=== PATIENT | female | born 1990 | race African-American/Black ===

== ENCOUNTER 2018-08-01 18:17 | Emergency (ER) | payer OTHER, SELFPAY ==
[2018-08-01 20:01] LABS: Bilirubin Negative (Negative); Blood, Urine Negative (Negative); Clarity CLOUDY (Clear); Glucose, Urine (Dipstick) Negative (Negative); Leukocyte Large (Negative); Nitrite Negative (Negative); Protein, Urine (Dipstick) 30 mg/dL (Neg-Trace); Specific Gravity, Urine 1.016 (1.002-1.036); Urobilinogen 0.2 mg/dL (0.2-1.0); pH, Urine 5.5 (5.0-9.0)
[2018-08-01 20:03] LABS: Bacteria/HPF 1+ HPF (None Seen); Pathc Cast-AUWi Flag 2.18 (0-2.49); Squamous Epithelial 0-3 HPF (0-3)
[2018-08-01 20:06] LABS: Hyaline Casts/LPF 0-3 HYALINE CAST LPF (0-3 Hyaline); RBC/HPF None Seen HPF (0-3)
== END 2018-08-01 20:38 | disposition home or self-care (01) ==
LOC: ERS 18:17
DX: O23.43 Unspecified infection of urinary tract in pregnancy, third trimester (principal); O99.89 Other specified diseases and conditions complicating pregnancy, childbirth and the puerperium; R19.7 Diarrhea, unspecified; Z3A.29 29 weeks gestation of pregnancy
CPT/HCPCS: 81003; 81015; 87086; 99284

== ENCOUNTER 2018-08-26 11:07 | Day surgery (SDC) | payer OTHER ==
--- NOTE | 2018-08-26 13:41 | PDOC.LDHP ---
Labor and Delivery H&P Chief complaint: other (spotting) HPI: 28 y/o at 32w5d, patient of Dr. Romero, presents with blood tinged discharge while at [facility] earlier that has since resolved. Denies heavy VB, ctx, LOF, or decreased FM. ROS neg for HEENT, CV, pulm, GI, , neuro, psych, skin, musculoskeletal, or constitutional symptoms other than mentioned above. OB History Details: 2 prior term SVDs Current complications: none Past Medical History: None Current medications: pre- vitamins Previous surgical history: cholecystectomy Allergies/Adverse Reactions: Allergies Allergy/AdvReac Type Severity Reaction Status Date / Time No Known Allergies Allergy Verified 08/26/18 11:46 Social history: none - Physical Exam Vital signs reviewed and normal: yes General: NAD, resting Lungs: nonlabored breathing Abdomen: gravid Extremeties: no edema FHT: category 1 (125, mod variability, + accels, no decels) [place] contractions every: none - Assessment 28 y/o at 32w5d with spotting that has resolved. status reassuring with reactive NST. - Plan -: D/c home with precautions. Advised to keep all appointments.
== END 2018-08-26 13:47 | disposition home or self-care (01) ==
LOC: L&D/OP 11:07
PROVIDERS: ATTEND Obstetrics & Gynecology
DX: O26.853 Spotting complicating pregnancy, third trimester (principal); Z3A.32 32 weeks gestation of pregnancy
CPT/HCPCS: 59025; 99281

== ENCOUNTER 2018-10-10 10:40 | Inpatient (IN) | payer OTHER ==
[2018-10-11] MEDS ORDERED: Bupivacaine PF 0.5% 30 ML VIAL ONE (02:00)
[2018-10-11] MEDS ORDERED: Butorphanol Tartrate 1 MG/ML VIAL SLOW IVP PRN (06:23)
[2018-10-11] MEDS ORDERED: Ondansetron PF 4 MG/2 ML Vial IVP PRN ×3 (06:23→16:30)
[2018-10-11] MEDS ORDERED: Promethazine HCl 25 MG/ML VIAL IM PRN ×3 (06:23→16:12)
[2018-10-11 06:24] VITALS: BMI 45.9
[2018-10-11] MEDS ORDERED: Methylergonovine 0.2 MG/ML VIAL IM PRN (06:30)
[2018-10-11] MEDS ORDERED: Misoprostol 200 MCG TAB RC PRN (06:30)
[2018-10-11] MEDS ORDERED: Ibuprofen 800 MG TAB PO PRN (06:30)
[2018-10-11] MEDS ORDERED: NS w/ Oxytocin 10 units 500 ML IV SCH ×2 (06:30)
[2018-10-11] MEDS: Lactated Ringer's 1,000 ML IV SCH ×2 (07:20→12:42)
[2018-10-11 07:43] LABS: Hemoglobin 10.7 g/dL (12.0-16.0); Mean Corpuscular Volume 91.4 fL (78.0-98.0); Platelet Count 247 thou/uL (130-400); RBC Distribution Width 13.7 % (11.5-14.5); Red Blood Cell (RBC) Count 3.33 mill/uL (4.20-5.40); White Blood Cell (WBC) Count 6.3 thou/uL (4.8-10.8)
[2018-10-11] MEDS ORDERED: Penicillin G Potassium 5 MILL.UNITS in Sodium Chloride 0.9% 100 ML IVPB SCH (07:45)
[2018-10-11 08:24] LABS: Syphilis Antibody Nonreactive (Nonreactive); Syphilis Antibody Index 0.06 S/CO (<1.00 Non-Reactive)
[2018-10-11 08:25] LABS: HBSAg Index 0.29 S/CO (0-0.99); Hep B Surf Ag Non-Reactive S/CO (NonReactive)
[2018-10-11] MEDS ORDERED: Fentanyl 4 mcg/Bup 0.1% Cadd 100 ML ONE ×2 (12:39→20:40)
[2018-10-11] MEDS ORDERED: Lidocaine 1.5%/Epinephrine 1:200,000 5 ML AMPUL IJ ONE (13:08)
[2018-10-11] MEDS: Pen G 2.5 MILL.UNITS/50 ML BAG IVPB SCH ×2 (14:09)
[2018-10-11] MEDS ORDERED: ePHEDrine/0.9% NaCl/PF SYRINGE 50 mg/10 ml SLOW IVP PRN ×2 (16:02→16:12)
[2018-10-11] MEDS ORDERED: Naloxone HCl 0.4 mg/ml Vial IVP PRN ×4 (16:02→16:12)
[2018-10-11] MEDS ORDERED: diphenhydrAMINE 50 MG/ML VIAL IVP PRN ×2 (16:02→16:12)
[2018-10-11] MEDS ORDERED: Eucerin (Mineral Oil/Petrolatum,White) 30 gm Jar TOP PRN ×2 (16:02→16:12)
[2018-10-11] MEDS ORDERED: Acetaminophen 325 MG TAB PO PRN ×2 (16:02→16:12)
[2018-10-11] MEDS ORDERED: Lactated Ringer's 500 ML IV PRN ×2 (16:02→16:12)
[2018-10-11] MEDS ORDERED: Communication Order-Pharmacy FS SCH ×2 (16:15)
[2018-10-11] MEDS ORDERED: Fentanyl 4 mcg/Bupivacaine 0.1% Cassette 100 ML EPIDURAL SCH ×2 (16:15)
[2018-10-11] MEDS ORDERED: NS / Oxytocin 40 units/1000ml 1,000 ML ONE (16:25)
[2018-10-11] MEDS ORDERED: HYDROcodone/Acetaminophen 5/325 mg Tablet PO PRN ×2 (22:11)
[2018-10-11] MEDS ORDERED: Benzocaine-Menthol 82.5 ML CAN TOP PRN (22:11)
[2018-10-11] MEDS ORDERED: diphenhydrAMINE 25 MG CAP PO PRN (22:11)
[2018-10-11] MEDS ORDERED: Lanolin Ointment 7 GM TUBE TOP PRN (22:11)
[2018-10-11] MEDS ORDERED: Bisacodyl 10 MG SUPP PR PRN (22:11)
[2018-10-11] MEDS ORDERED: Milk Of Magnesia 30 ML UDCUP PO PRN (22:11)
[2018-10-11] MEDS ORDERED: Preparation H Ointment 28 GM TUBE PR PRN (22:11)
[2018-10-11] MEDS ORDERED: NS / Oxytocin 40 units/1000ml 1,000 ML IV SCH (22:15)
[2018-10-11] MEDS ORDERED: Bupivacaine 0.25% HCL 30 ML VIAL ONE (23:00)
[2018-10-11] MEDS ORDERED: Bupivacaine HCl 0.5%/Epinephrine 1:200,000/PF 30 ml Vial ONE (23:00)
--- NOTE | 2018-10-12 05:06 | OP ---
DATE OF PROCEDURE: 10/11/2018 PREOPERATIVE DIAGNOSES: 1. A 28-year-old female, G3, P2, at 39 weeks with induction of labor. 2. GBS positive. 3. Anemia of . POSTOPERATIVE DIAGNOSES: 1. A 28-year-old female, G3, P2, at 39 weeks with induction of labor. 2. GBS positive. 3. Anemia of . 4. A live born female with Apgars of 8 and 9 at one and five minutes respectively. FABRICATING MACHINE OPERATOR: None. PROCEDURE PERFORMED: Spontaneous vaginal delivery. ESTIMATED BLOOD LOSS: 50 mL. ANESTHESIA: Epidural with a re-dose. CLINICAL HISTORY: This patient is a 28-year-old female, who presented for induction of labor this morning as scheduled. She was noted to be 2 cm, but was very high in the pelvis and amniotomy was attempted; however, given the patient's exam and curvature of the cervix, this was not tolerated by the patient, was attempted again and the patient then requested an epidural for maternal analgesia. After the epidural was placed, amniotomy was performed and internal monitors were placed simply for ease of monitoring given the patient's body habitus. The patient progressed with Pitocin. She did receive multiple doses of her penicillin for GBS prophylaxis. She progressed to complete cervical dilation and +2 station and began to push. DESCRIPTION OF PROCEDURE: With good maternal effort, the patient was able to bring the vertex to station in the GAL position. The head was delivered followed by the anterior shoulder followed by the posterior shoulder and then the remainder of the 's body. The cord was doubly clamped and cut. The was cried vigorously and spontaneously. She was placed on the maternal abdomen for continued stimulation and attendance by the nurses in the delivery. Cord blood was obtained. The placenta was then delivered spontaneously intact with a three-vessel cord. Exploration of the vagina, introitus, and cervix yield no lacerations. The placenta was discarded as medical waste and the patient was cleansed and re-draped and put in the recovery position with her . Again, the infant was a live born female. Weight was unavailable at the time of dictation. Apgars were 8 and 9 at one and five minutes respectively. There were no other issues surrounding this delivery. All needle, sponge, lap, and instrument counts were correct x2 at the end of the procedure. Job ID: [id number]
[2018-10-12] MEDS: Ibuprofen 800 MG TAB PO SCH ×3 (06:12→22:56)
[2018-10-12] MEDS ORDERED: HYDROcodone/Acetaminophen 5/325 mg Tablet PO PRN ×2 (07:44)
[2018-10-12] MEDS ORDERED: Adacel (T-DAP) 0.5 ML SYRINGE IM ONE (09:00)
[2018-10-12] MEDS: Docusate Calcium (SURFAK) 240 MG CAP PO SCH ×2 (09:59→22:56)
[2018-10-12] MEDS: Prenatal Vitamin 1 TAB PO SCH (09:59)
[2018-10-12] MEDS: Ferrous Sulfate 325 MG TAB PO SCH ×2 (09:59→17:47)
[2018-10-13] MEDS: Ibuprofen 800 MG TAB PO SCH ×2 (05:47→13:50)
[2018-10-13 08:18] VITALS: BP 119/61; TEMP 98.2
[2018-10-13] MEDS: Prenatal Vitamin 1 TAB PO SCH (09:17)
[2018-10-13] MEDS: Docusate Calcium (SURFAK) 240 MG CAP PO SCH (09:17)
[2018-10-13] MEDS: Ferrous Sulfate 325 MG TAB PO SCH (09:18)
== END 2018-10-13 14:15 | disposition home or self-care (01) | DRG 807 ==
LOC: L&D 10-11 05:34 → 3SW 10-12 00:49
PROVIDERS: ADMIT Obstetrics & Gynecology; ATTEND Obstetrics & Gynecology
PROC: 10E0XZZ Delivery of Products of Conception, External Approach (ICD-10-PCS; principal; 2018-10-11)
DX: O99.824 Streptococcus B carrier state complicating childbirth (principal); Z37.0 Single live birth; Z3A.39 39 weeks gestation of pregnancy; O99.02 Anemia complicating childbirth; D64.9 Anemia, unspecified
CPT/HCPCS: 36415; 51701; 51702; 85027; 86780; 86850; 86900; 86901; 87340; J0670; J2405; J2540; J3490; J7050; S0020

== ENCOUNTER 2019-05-28 22:00 | Emergency (ER) | payer OTHER, SELFPAY ==
[2019-05-28 23:09] LABS: Bilirubin Negative (Negative); Blood, Urine Negative (Negative); Clarity Clear (Clear); Glucose, Urine (Dipstick) Normal (Negative); Leukocyte 250 Leu/uL (Negative); Nitrite Negative (Negative); Protein, Urine (Dipstick) Negative (Neg-Trace); Renal Epithelial 0-3 HPF (None Seen)
[2019-05-28 23:21] LABS: Bacteria/HPF 1+ HPF (None Seen)
[2019-05-30 19:16] LABS: Chlamydia by PCR Not Detected (NotDetected); GC by PCR Not Detected (NotDetected)
== END 2019-05-28 23:15 | disposition home or self-care (01) ==
LOC: ERS 22:00
DX: N76.0 Acute vaginitis (principal)
CPT/HCPCS: 81003; 81015; 87086; 87480; 87491; 87510; 87591; 87660; 99283

== ENCOUNTER 2019-09-24 18:18 | Emergency (ER) | payer SELFPAY ==
[2019-09-24] MEDS ORDERED: Ketorolac Tromethamine 30 MG/ML VIAL ONE (18:50)
== END 2019-09-24 19:02 | disposition home or self-care (01) ==
LOC: ERS 18:18
DX: M54.6 Pain in thoracic spine (principal); M54.5 Low back pain
CPT/HCPCS: 96372; 99283; J1885

== ENCOUNTER 2021-06-23 16:09 | Emergency (ER) | payer SELFPAY ==
[2021-06-23 23:40] LABS: SARS-CoV-2 PCR by NAA Not Detected (NotDetected)
== END 2021-06-23 18:28 | disposition home or self-care (01) ==
LOC: ERS 16:09
DX: J06.9 Acute upper respiratory infection, unspecified (principal); J34.89 Other specified disorders of nose and nasal sinuses; Z20.822 Contact with and (suspected) exposure to COVID-19; Z86.16 Personal history of COVID-19
CPT/HCPCS: 99283; U0003; U0005

== ENCOUNTER 2022-06-23 19:38 | Emergency (ER) | payer SELFPAY ==
[2022-06-23] MEDS ORDERED: Dexamethasone 10 MG/ML VIAL ONE (22:13)
== END 2022-06-23 22:19 | disposition home or self-care (01) ==
LOC: ERS 19:38
DX: H66.91 Otitis media, unspecified, right ear (principal); J02.9 Acute pharyngitis, unspecified; I10 Essential (primary) hypertension
CPT/HCPCS: 99282; J1100